=== PATIENT | female | born 1985 | race Native Hawaiian/Other Pacific Islander ===

== ENCOUNTER 2019-12-30 14:18 | Outpatient (CLI) | payer BC | END 2019-12-30 19:10 | disposition home or self-care (01) | LOC: LABW 14:18 | DX: E05.90 Thyrotoxicosis, unspecified without thyrotoxic crisis or storm (principal) | CPT/HCPCS: 36415; 84439; 84443 ==

== ENCOUNTER 2020-01-04 08:46 | Outpatient (CLI) | payer BC | END 2020-01-04 20:04 | disposition home or self-care (01) | LOC: MRI 08:46 | DX: R13.10 Dysphagia, unspecified (principal); K76.9 Liver disease, unspecified | CPT/HCPCS: A9576 ==

== ENCOUNTER 2020-01-14 08:14 | Outpatient (CLI) | payer BC | END 2020-01-14 23:00 | disposition home or self-care (01) | LOC: RAD 08:14 | DX: R13.10 Dysphagia, unspecified (principal) ==